=== PATIENT | female | born 2000 ===

== ENCOUNTER 2022-06-23 09:37 | Emergency (ER) | payer OTHER ==
[~2022-06-23] VITALS: Ht 177.8 cm; Wt 70.5 kg
[2022-06-23 09:53] VITALS: BP 122/82; PULSE 97; TEMP 98.5
[2022-06-23] MEDS ORDERED: BIRTH CONTROL (10:21)
[2022-06-23] MEDS ORDERED: ILOTYCIN5 MG/GM OD (10:54)
== END 2022-06-23 11:10 | disposition home or self-care (01) ==
LOC: COL.ER 09:37
DX: S05.01XA Injury of conjunctiva and corneal abrasion without foreign body, right eye, initial encounter (principal); X58.XXXA Exposure to other specified factors, initial encounter; Y92.59 Other trade areas as the place of occurrence of the external cause; Y99.0 Civilian activity done for income or pay